=== PATIENT | male | born 1965 | race Caucasian/White ===

== ENCOUNTER 2022-08-28 18:53 | Emergency (ER) | payer BC, SELFPAY ==
[2022-08-28] VITALS (17 sets, daily range): BP systolic 132–153; BP diastolic 68–86; PULSE 64–89; RESP 8–20; TEMP 35.8–36.6; O2SAT 91–100
--- NOTE | ~2022-08-28 | XR_ITS ---
XR chest 1V portable DATE: 08/28/2022 19:59 INDICATION: Acute shortness of breath. Chills. Generalized weakness. TECHNIQUE: Portable AP views on August 28, 20222 and 195 hours COMPARISON: None FINDINGS: Normal heart size. No hilar or mediastinal enlargement. No pulmonary infiltrate or consolidation, pleural effusion or pulmonary vascular congestion or pneumo thorax. Degenerative spurring of the thoracic spine. Osteoarthritic change at the glenohumeral joints. IMPRESSION: No active cardiopulmonary disease Reviewed, dictated and finalized at location A.
--- NOTE | 2022-08-28 18:56 | ECG_ITS ---
Measurements Intervals [place] Rate: 70 P: 68 SC: 167 QRS: 28 QRSD: 97 T: 57 QT: 402 QTc: 437 Interpretive Statements SINUS RHYTHM NORMAL ELECTROCARDIOGRAM NO PREVIOUS ECG AVAILABLE FOR COMPARISON Electronically Signed On 08-29-2022 7:39:18 CDT by Rex Prince M.D.
[2022-08-28 19:06] LABS: Glucose Point of Care 263 mg/dl (65-105)
[2022-08-28] MEDS: SODIUM CHLORIDE 0.9% IV 1,000 ML 999 ML IV CONT (19:18)
[2022-08-28] MEDS: methylPREDNISolone SOD SUCC 125 MG VIAL IV PUSH (19:19)
[2022-08-28 19:26] LABS: Basophils Absolute Auto 0.09 K/mm3 (0.00-0.10); Basophils Percent Auto 1.2 % (0.0-1.0); Eosinophils Absolute Auto 0.11 K/mm3 (0.02-0.50); Eosinophils Percent Auto 1.4 % (1.0-6.0); Hematocrit 39.6 % (40.0-54.0); Immature Granulocyte Absolute 0.04 K/mm3 (0.00-0.00); Immature Granulocyte Percent A 0.5 % (0.0-0.0); Lymphocytes Absolute Auto 0.97 K/mm3 (1.10-4.50); Lymphocytes Percent Auto 12.5 % (18.0-42.0); Mean Corpuscular HGB Conc 35.4 g/dL (32.0-36.0); Mean Corpuscular Hemoglobin 29.4 pg (27.0-31.0); Mean Corpuscular Volume 83.2 fL (78.0-102.0); Mean Platelet Volume 10.2 fl (8.7-11.0); Monocytes Absolute Auto 0.85 K/mm3 (0.10-0.90); Monocytes Percent Auto 10.9 % (2.0-11.0); Neutrophils Absolute Auto 5.7 K/mm3 (1.7-7.2); Neutrophils Percent Auto 73.5 % (50.0-70.0); Platelet Count Result 190 K/mm3 (150-420); Red Blood Count 4.76 M/mm3 (4.70-6.10); Red Cell Distribution Width 12.2 % (11.6-14.4); White Blood Count 7.8 K/mm3 (4.8-10.8)
[2022-08-28] MEDS: IPRATROPIUM 0.5 MG/ALBUTEROL SULFATE 2.5 MG AMPUL.NEB 3 ML INHALATION (19:37)
[2022-08-28 19:56] LABS: D Dimer 0.19 mg/L (0.19-0.50); Partial Thromboplastin Time 25.4 SEC (23.90-30.70); Prothrombin Time 10.5 Seconds (9.50-12.10)
[2022-08-28 20:02] LABS: Alanine Aminotransferase 29 U/L (16-63); Albumin Level 3.8 g/dL (3.4-5.0); Alkaline Phosphatase 48 U/L (46-116); Anion Gap 14 mmol/L (8-16); Aspartate Amino Transferase 26 U/L (15-37); Bilirubin,Total 0.7 mg/dL (0.00-1.00); Blood Urea Nitrogen 16 mg/dL (7-18); Calcium 8.5 mg/dL (8.5-10.1); Carbon Dioxide 22 mmol/L (21-32); Chloride 98 mmol/L (98-108); Estimated CRCL calculation 89 ml/min; Estimated Glomerular Filt Rate > 60; Glucose 325 mg/dL (70-99); Magnesium 1.7 mg/dL (1.8-2.4); NT Pro B Type Natriuretic Pept 38 pg/mL (0-125); Osmolality Calculated 292 mOsm/kg (285-295); Potassium 3.9 mmol/L (3.5-5.1); Sodium 134 mmol/L (136-145); Total Protein 7.5 g/dL (6.4-8.2)
--- NOTE | 2022-08-28 20:44 | ED.URI ---
HPI - URI/Sore Throat General Chief Complaint: Weakness Stated Complaint: chills Time Seen by Provider: 08/28/22 18:56 Source: patient and family Mode of arrival: wheelchair Limitations: no limitations History of Present Illness HPI Narrative: This is a 57-year-old male that presents with some body aches and chills with a clear nasal discharge sinus congestion with mild shortness of breath O2 sats 100% on room air no cough, denies chest pain no abdominal pain no fevers, with no nausea vomiting no headache no neck stiffness no back pain no dysuria. MD elicited complaint: rhinorrhea, nasal congestion and sinus pain Onset (ago): hour(s) Consistency: constant Description of mucous: clear Able to tolerate fluids by mouth: Yes Exacerbating factors: nothing Relieving factors: nothing Associated symptoms: chills, myalgias, rhinorrhea and nasal congestion Related Data Allergies Allergy/AdvReac Type Severity Reaction Status Date / Time codeine Allergy Intermediate Unknown Verified 08/28/22 19:09 Review of Systems Review of Systems: All systems reviewed & are unremarkable except as noted in HPI and below PMFSH Past Medical History Medical History Diabetes mellitus Family History Family History Mother Depression Family history of diabetes mellitus in first degree relative Grandparent Family history of diabetes mellitus in first degree relative Social History Social History Smoking status: Never smoker Alcohol intake: never Exam Const: General: healthy appearing, no acute distress and alert Nutritional Appearance: well nourished Orientation/consciousness: patient oriented x3 Limitations: no limitations HENMT: Head: normal to inspection Face/Nose/Sinus: Nasal discharge present Face and sinus: sinus tenderness Other: clear nasal discharge with some sinus tenderness and congestion Eyes: Conjunctivae: conjunctivae normal Neck: Neck: normal visual inspection and no lymphadenopathy Chest: Chest palpation & inspection: normal inspection of the chest Resp: Effort & Inspection: normal respiratory effort Auscultation: clear to auscultation bilaterally Cardio: Rate: regular rate Rhythm: regular rhythm GI: GI Palp: Yes Soft to palpation Back/Spine/Pelvis: Back: no CVA tenderness Skin: General skin exam: normal color Rashes: no rashes Wounds: no wounds Neuro: General: patient oriented x3 Cranial nerves: Yes Nystagmus not present Speech: normal speech Extrem: General: normal to inspection Psych: Mental Status: mental status grossly normal Affect: normal affect and Anxious affect present Attitude: cooperative Course Course Emergency Course: EKG reviewed with patient and lab work and chest x-ray also reviewed patient received L of normal saline, labs showed no acute abnormalities white count is normal the patient is afebrile patient does have COVID. Vital Signs Vital signs: Vital Signs Temperature 35.8 C L 08/28/22 18:53 Pulse Rate 80 08/28/22 18:53 Respiratory Rate 20 08/28/22 18:53 Blood Pressure 153/86 H 08/28/22 18:53 Pulse Oximetry 100 08/28/22 18:53 Oxygen Delivery Room Air 08/28/22 18:53 Temperature 35.8 C L 08/28/22 18:53 Pulse Rate 89 08/28/22 19:50 Respiratory Rate 18 08/28/22 19:50 Blood Pressure 132/75 08/28/22 19:16 Pulse Oximetry 100 08/28/22 19:50 Oxygen Delivery Room Air 08/28/22 18:53 MDM - URI/Sore Throat Lab Data 08/28/22 19:21 08/28/22 19:21 Labs: Lab Results 08/28/22 08/28/22 08/28/22 Range/Units 19:03 19:21 19:21 WBC 7.8 (4.8-10.8) K/mm3 RBC 4.76 (4.70-6.10) M/mm3 Hgb 14.0 (14.0-18.0) g/dL Hct 39.6 L (40.0-54.0) % MCV 83.2 (78.0-102.0) fL MCH 29.4 (27.0-31.0) pg MCHC 35.4 (32.0-36.0) g/dL
[2022-08-28 20:46] LABS: Influenza A QL RT-PCR Negative (Negative); Influenza B QL RT-PCR Negative (Negative); RSV RNA, RT-PCR Negative (Negative); SARS-CoV-2 RNA PCR Positive (Negative)
== END 2022-08-28 21:05 | disposition home or self-care (01) ==
PROVIDERS: Emergency Provider Emergency Medicine
DX: U07.1 COVID-19 (principal); R06.02 Shortness of breath; E11.9 Type 2 diabetes mellitus without complications
CPT/HCPCS: 36415; 71045; 80053; 82948; 83735; 83880; 84484; 85025; 85380; 85610; 85730; 87637; 93005; 94640; 96361; 96374; 99284; J2930; J7030

== ENCOUNTER 2022-10-27 17:37 | Emergency (ER) | payer BC, SELFPAY ==
--- NOTE | ~2022-10-27 | XR_ITS ---
EXAMINATION: XR hand LT min 3V INDICATION: Left hand pain and laceration TECHNIQUE: Three views of the left hand are obtained. COMPARISON: None available FINDINGS: There is soft tissue laceration between the first and second metacarpals. Associated soft t issue gas is seen. No radiopaque foreign body is identified. There is no fracture. 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 IMPRESSION: 1. Soft tissue laceration and associated gas without radiopaque foreign body or acute osseous abnorma lity identified. Reviewed, dictated and finalized at location F. IMPRESSION: 1. Soft tissue laceration and associated gas without radiopaque foreign body or acute osseous abnormality identified.
[2022-10-27 17:40] VITALS: BP 169/93; PULSE 77; RESP 20; TEMP 37.1; O2SAT 99
[2022-10-27] MEDS: TETANUS,DIPHTHERIA,AC PERTUSSIS ADULT 0.5 ML (ADACEL) IM (18:01)
--- NOTE | 2022-10-27 18:01 | ED.WOUNDLAC ---
HPI - Wound/Laceration General Chief Complaint: Wound/Laceration Stated Complaint: L finger Laceration Time Seen by Provider: 10/27/22 17:45 Source: patient Mode of arrival: ambulatory Limitations: no limitations History of Present Illness HPI narrative: 57-year-old white male was using a Dremel type tool and it spun off the object he was shaving and struck his left index finger, palm of the hand, web space, left thumb shortly prior to arrival. He can move his finger and thumb without difficulty, reports that strength is full in flexion and extension, there is no numbness or paresthesia, his NG grasp is intact, but he does not think he has had a tetanus shot in the last 5 years. No other injury. No wrist or forearm injury. He has not had any recent illnesses, review of systems is negative Related Data Allergies Allergy/AdvReac Type Severity Reaction Status Date / Time codeine Allergy Intermediate Unknown Verified 08/28/22 19:09 Review of Systems Review of Systems: All systems reviewed & are unremarkable except as noted in HPI and below ( HPI) [facility] Past Medical History Medical History Diabetes mellitus Family History Family History Mother Depression Family history of diabetes mellitus in first degree relative Grandparent Family history of diabetes mellitus in first degree relative Social History Social History Smoking status: Never smoker Alcohol intake: never Exam Narrative: pleasant, well-oriented, no acute distress Const: General: healthy appearing, no acute distress and alert Orientation/consciousness: patient oriented x3 HENMT: Head: normal to inspection, normocephalic and atraumatic Ears: hearing grossly normal bilaterally and external ears normal Face/Nose/Sinus: Normal external nose present, Normal nares present, Normal nasal mucous membranes and turbinates present and normal facial exam Face and sinus: normal facial exam Mouth: Yes lip normal and Yes moist mucous membranes Eyes: General: appearance normal, both eyes and all related structures Alignment and Position: alignment normal and position normal Periorbital: periorbital findings normal Eyelids: eyelids normal Conjunctivae: conjunctivae normal Sclera: sclerae normal Cornea: corneas normal Pupils: Equal, round and reactive pupils present EOM: EOMs intact bilaterally Neck: Neck: normal visual inspection, full ROM and no lymphadenopathy Chest: Chest palpation & inspection: normal inspection of the chest Resp: Effort & Inspection: normal respiratory effort, able to speak in complete sentences, no respiratory distress and no use of accessory muscles Skin: General skin exam: normal color, no rashes or lesions noted, elasticity normal and turgor normal Other: there is a long linear laceration with skip areas extending from the left index finger PIP at the volar lateral angle, and it skips proximally along that saying angle extending down through the into her [place] is area, and upper part way towards the IP of the thumb. The lacerated areas are through the dermis and epidermis, but did not appear to go deep into the subcu tissue. He has full strength on flexion of the left index finger at the MCP, PIP, DI P as well as full extension at each of those digits. He has full thumb flexion at the MCP and IP as well as full extension. He has good pincer strength of the index finger and thumb distal neurovascular is intact. There are no other injuries to the hand or proximal arm Neuro: General: patient oriented x3, gait normal, tone normal and moves all extremities Cranial nerves: Yes CN's II-XII intact bilaterally, Yes Equal, round and reactive pupils present and Yes Bilaterally intact EOM present Speech: normal speech Motor exam (neuro): 5/5 motor strength present throu
[2022-10-27] MEDS: LIDOCAINE HCL 1% LOCAL INJ 10 ML VIAL 20 ML INFILTRATE (18:02)
[2022-10-27] MEDS: NEOMYCIN/POLYMYXIN/BACITRACIN OINTMENT PACKET 2 PACKET TOPICAL (18:05)
--- NOTE | 2022-10-27 19:23 | PC.NURSE ---
report to shavon ashley
--- NOTE | 2022-10-27 19:39 | PC.NURSE ---
Triple antibiotic ointment applied with nonadhesive dressing and kerlex. Pt tolerated well. No active bleeding.
[2022-10-27] MEDS: AMOXICILLIN/CLAVULANATE K 875-125 MG TAB 1 TABLET PO (19:58)
[2022-10-27] MEDS: IBUPROFEN 400 MG TABLET 800 MG PO (19:58)
[2022-10-27 20:02] VITALS: BP 156/94; PULSE 89; RESP 18; O2SAT 98
== END 2022-10-27 20:05 | disposition home or self-care (01) ==
PROVIDERS: Emergency Provider Emergency Medicine
DX: S61.211A Laceration without foreign body of left index finger without damage to nail, initial encounter (principal); E11.9 Type 2 diabetes mellitus without complications; Z23 Encounter for immunization; W45.8XXA Other foreign body or object entering through skin, initial encounter
CPT/HCPCS: 12004; 73130; 90471; 90715; 99283; A9270